=== PATIENT | female | born 1980 | race Caucasian/White ===

== ENCOUNTER 2018-10-27 20:10 | Emergency (ER) | payer MEDICARE, OTHER ==
--- NOTE | 2018-10-27 20:54 | ED Physician Documentation ---
PD HPI HEADACHE - Stated complaint Stated Complaint: SWIFT - Chief complaint Chief Complaint: Neuro - History obtained from History obtained from: Patient - History of Present Illness Timing - onset: How many days ago (7) Timing - onset during: Light activity Timing - duration: Days (7) Timing - details: Gradual onset (she has migraines and being treated with botox. had injections on , and noted increase in headache the next 1-2 days, and has persisted at higher level since.) Worst headache ever?: No: Worst headache ever? Location: Front, Left Quality: Throbbing, Aching Associated symptoms: Nausea. No: Fever, Vomiting, Eye pain Improved by: No: Rest, Meds Worsened by: Light Contributing factors: No: Recent illness, Trauma Similar symptoms before: Diagnosis (prior Dx IIH, but then shifted to more likely migraines with treatment focus that way now. Has had temporal artery biopsy which was negative. Dx also with SLE.) Recently seen: Clinic (Neurology in [place] with botox injections October 20.) Review of Systems Constitutional: denies: Fever, Chills, Myalgias Eyes: reports: Photophobia. denies: Loss of vision Nose: denies: Rhinorrhea / runny nose, Congestion Throat: denies: Sore throat Respiratory: denies: Cough GI: reports: Nausea. denies: Abdominal Pain, Vomiting, Diarrhea Neurologic: reports: Headache. 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 - Present Medications Home Medications: Ambulatory Orders Medication Instructions Recorded Confirmed dexAMETHasone [Decadron] 4 mg PO DAILY #7 tablet 10/27/18 - Allergies Allergies/Adverse Reactions: Allergies Allergy/AdvReac Type Severity Reaction Status Date / Time amitriptyline Allergy Hives Verified 10/27/18 20:33 cephalexin [From Keflex] Allergy Hives Verified 10/27/18 20:32 cyclobenzaprine Allergy Hives Verified 10/27/18 20:31 [From Flexeril] duloxetine [From Cymbalta] Allergy Hives Verified 10/27/18 20:33 enoxaparin [From Lovenox] Allergy Hives Verified 10/27/18 20:33 heparin Allergy Hives Verified 10/27/18 20:35 hydrocodone Allergy Itching Verified 10/27/18 20:31 methotrexate Allergy Anaphylaxis Verified 10/27/18 20:35 ondansetron [From Zofran] Allergy Hives Verified 10/27/18 20:33 Penicillins Allergy Rash Verified 10/27/18 20:31 prednisone Allergy Hives Verified 10/27/18 20:31 tizanidine [From Zanaflex] Allergy Hives Verified 10/27/18 20:31 trazodone Allergy Anxiety Verified 10/27/18 20:32 venlafaxine [From Effexor] Allergy Hives Verified 10/27/18 20:33 - Social History Does the pt smoke?: No Smoking Status: Never smoker Does the pt drink ETOH?: No Does the pt have substance abuse?: No - Immunizations Immunizations are current?: Yes - POLST Patient has POLST: No PD ED PE NORMAL - Vitals Vital signs reviewed: Yes - General General: Alert and oriented X 3, Well developed/nourished, Other (appears in pain and has light sensitive. ) - HEENT HEENT: PERRL, EOMI, Ears normal, Pharynx benign, Other (left gnosticist area focally tender at approx masseter muscle insertion site. 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, No motor deficit, No sensory deficit, Normal speech, Other Results - Vitals Vitals: Vital Signs - 24 hr 10/27/18 10/27/18 10/27/18 20:11 20:17 22:30 Temperature 36.4 C L 36.6 C Heart Rate 80 80 68 Respiratory 16 16 16 Rate Blood Pressure 118/76 118/76 111/80 O2 Saturation 100 100 97 10/28/18 00:01 Temperature 36.6 C Heart Rate 61 Respiratory 16 Rate Blood Pressure 118/82 H O2 Saturation 99 Oxygen O2 Source Room air - Labs Labs: Laboratory Tests 10/27/18 10/27/18 10/27/18 22:28 22:28 22:28 WBC 8.0 RBC 4.97 Hgb 14.7 Hct 42.9 MCV 86.3 MCH 29.6 MCHC 34.3 RDW 12.9 Plt Count 228 MPV 10.1 Neut # (Auto) 4.7 Lymph # (Auto) 2.8 [place] # (Auto) 0.4 Eos # (Auto) 0.1 Baso # (Auto) 0.1 Absolute Nucleated RBC 0.00 Nucleated RBC % 0.0 ESR 5 Sodium 139 Potassium 3.4 L Chloride 107 Carbon Dioxide 20 L Anion Gap 12.0 BUN 14 Creatinine 0.9 Estimated GFR (MDRD) 70 L Glucose 89 Calcium 9.0 Total Bilirubin 1.1 H AST 17 ALT 11 Alkaline Phosphatase 86 Total Protein 7.0 Albumin 4.2 Globulin 2.8 Albumin/Globulin Ratio 1.5 Lipase 38 PD MEDICAL DECISION MAKING - ED course Complexity details: considered differential (normal ventricle size, so really would not think IIH. She had improvement on headache but only to moderate number (4/10), but she is okay with that and declines further pain meds. ), d/w patient ED course: did local injection left gnosticist muscle area with Marcaine. Departure - Departure Disposition: 01 Home, Self Care Clinical Impression: Migraine Qualifiers: Migraine type: without aura Status migrainosus presence: with status migrainosus Intractability: intractable Qualified Code(s): G43.011 - Migraine without aura, intractable, with status migrainosus Headache Qualifiers: Headache type: unspecified Headache chronicity pattern: acute headache Intractability: intractable Qualified Code(s): R51 - Headache Condition: Stable Record reviewed to determine appropriate education?: Yes Instructions: ED Headache Migraine Follow-Up: NICOLE HASSAN DO [Primary Care Provider] - Prescriptions: dexAMETHasone [Decadron] 4 mg PO DAILY #7 tablet Comments: Continue usual medications. Stay well-hydrated. Add Decadron steroid daily for 3 to 5 days. Hopefully the headache will taper down and improve over the next day or 2. Follow-up with your primary care or neurologist if headache persists and return if worsening or other symptoms. Discharge Date/Time: 10/28/18 00:03
[2018-10-27] MEDS ORDERED: diphenhydrAMINE INJ 50 MG/ML VIAL IVP STA (21:14)
[2018-10-27] MEDS ORDERED: BUPIVACAINE 0.5%-EPI 1:200000 PF 10 ML VIAL SUBQ STA (21:14)
[2018-10-27] MEDS ORDERED: PROCHLORPERAZINE 10 MG/2 ML VIAL IVP STA ×2 (21:14→22:36)
[2018-10-27] MEDS ORDERED: KETOROLAC 30 MG/ML VIAL IVP STA (21:14)
[2018-10-27] MEDS ORDERED: SODIUM CHLORIDE 0.9% 500 ML IV ONE (21:16)
--- NOTE | 2018-10-27 21:43 | CT Report ---
Reason: left headache after botox injections Procedure Date: 10/27/2018 Accession Number: [id number] / [id number] Procedure: CT - HEAD WO CPT Code: FULL RESULT: EXAM: CT HEAD EXAM DATE: 10/27/2018 09:33 PM. CLINICAL HISTORY: Left headache after botox injections. COMPARISON: None. TECHNIQUE: Multiaxial CT images were obtained from the foramen magnum to the vertex. Reformats: Sagittal and coronal. IV contrast: None. In accordance with CT protocol optimization, one or more of the following dose reduction techniques were utilized for this exam: automated exposure control, adjustment of mA and/or KV based on patient size, or use of iterative reconstructive technique. FINDINGS: Parenchyma: No intraparenchymal hemorrhage. No evidence of mass, midline shift, or CT findings of infarction. Rose-white differentiation is distinct. Extraaxial Spaces: Normal for age. No subdural or epidural collections identified. Ventricles: Normal in size and position. Sinuses and Orbits: Imaged paranasal sinuses, orbits, and mastoids show no significant abnormality. Bones: No evidence of fracture or calvarial defect. Other: None. IMPRESSION: Normal head CT. RADIA
[2018-10-27 22:31] LABS: BASOPHILS # (AUTO) 0.1 10^3/uL (0.0-0.1); BASOPHILS % (AUTO) 0.6 %; EOSINOPHILS # (AUTO) 0.1 10^3/uL (0.0-0.7); EOSINOPHILS % (AUTO) 1.1 %; HGB - HEMOGLOBIN 14.7 g/dL (12.0-16.0); LYMPHOCYTES # (AUTO) 2.8 10^3/uL (1.5-3.5); LYMPHOCYTES % (AUTO) 34.6 %; MEAN CORPUSCULAR HEMOGLOBIN 29.6 pg (27.0-31.0); MEAN CORPUSCULAR HGB CONC 34.3 g/dL (32.0-36.0); MEAN CORPUSCULAR VOLUME 86.3 fL (81.0-99.0); MEAN PLATELET VOLUME 10.1 fL (7.9-10.8); MONOCYTES # (AUTO) 0.4 10^3/uL (0.0-1.0); NEUTROPHILS # (AUTO) 4.7 10^3/uL (1.5-6.6); NEUTROPHILS % (AUTO) 58.3 %; PLT - PLATELET COUNT 228 10^3/uL (130-450); RED BLOOD COUNT 4.97 10^6/uL (4.20-5.40); RED CELL DISTRIBUTION WIDTH 12.9 % (12.0-15.0)
[2018-10-27] MEDS ORDERED: DEXAMETHASONE 10 MG/ML VIAL IVP STA (22:35)
[2018-10-27] MEDS ORDERED: HYDROmorphone 2 MG/ML VIAL IVP STA (22:35)
[2018-10-27 22:45] LABS: ALBUMIN 4.2 g/dL (3.2-5.5); ALBUMIN/GLOBULIN RATIO 1.5 (1.0-2.2); BILIRUBIN,TOTAL 1.1 mg/dL (0.2-1.0); CREATININE 0.9 mg/dL (0.4-1.0)
[2018-10-28 00:03] VITALS: BP 118/82
== END 2018-10-28 00:03 | disposition home or self-care (01) ==
LOC: ED 20:10
DX: G43.011 Migraine without aura, intractable, with status migrainosus (principal); I10 Essential (primary) hypertension; M32.9 Systemic lupus erythematosus, unspecified
CPT/HCPCS: 36415; 70450; 80053; 83690; 85025; 85651; 96361; 96374; 96375; 99283; 99284; J1170; J1200

== ENCOUNTER 2018-10-30 18:12 | Emergency (ER) | payer MEDICARE, OTHER ==
[2018-10-30] MEDS ORDERED: LIDOCAINE 2% 10 ML MDV SUBQ STA (18:39)
[2018-10-30] MEDS ORDERED: diphenhydrAMINE INJ 50 MG/ML VIAL IVP STA (19:34)
[2018-10-30] MEDS ORDERED: PROCHLORPERAZINE 10 MG/2 ML VIAL IVP STA (19:34)
[2018-10-30] MEDS ORDERED: KETOROLAC 30 MG/ML VIAL IVP STA (19:34)
--- NOTE | 2018-10-30 19:43 | ED Physician Documentation ---
PD HPI HEADACHE - Stated complaint Stated Complaint: HEADACHE - Chief complaint Chief Complaint: Neuro - History obtained from History obtained from: Patient - History of Present Illness Timing - onset: Today Timing - onset during: Rest Timing - duration: Days (1) Timing - details: Abrupt onset Pain level max: 10 Pain level now: 10 Location: Front, Left Quality: Throbbing, Aching. No: Thunderclap, Stabbing, Tightness, Like head is exploding Associated symptoms: Nausea, Other (+photophobia). No: Fever, Stiff neck, Vomiting, Weakness, Numbness, Syncope, Seizure Improved by: Rest, Dark room Worsened by: Light, Noise Contributing factors: No: Anticoagulated, Possible carbon monoxide, Hypertension Similar symptoms before: Diagnosis (migraines) Recently seen: Emergency Dept (seen here a few days ago for same.) Review of Systems Ten Systems: 10 systems reviewed and negative Constitutional: denies: Fever Nose: denies: Rhinorrhea / runny nose, Congestion Throat: denies: Sore throat GI: denies: Nausea, Vomiting : denies: Now EGA Skin: denies: Rash Musculoskeletal: denies: Neck pain, Back pain PD PAST MEDICAL HISTORY - Past Medical History Cardiovascular: Hypertension Respiratory: Asthma Neuro: Migraines Endocrine/Autoimmune: Systemic lupus erythematosus Musculoskeletal: Rheumatoid arthritis - Past Surgical History Past Surgical History: Yes General: Cholecystectomy, Appendectomy 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 - Present Medications Home Medications: Ambulatory Orders Medication Instructions Recorded Confirmed dexAMETHasone [Decadron] 4 mg PO DAILY #7 tablet 10/27/18 Sumatriptan [Imitrex] 20 mg NS ONCE PRN #7 spray 10/30/18 - Allergies Allergies/Adverse Reactions: Allergies Allergy/AdvReac Type Severity Reaction Status Date / Time amitriptyline Allergy Hives Verified 10/30/18 18:19 cephalexin [From Keflex] Allergy Hives Verified 10/30/18 18:19 cyclobenzaprine Allergy Hives Verified 10/30/18 18:19 [From Flexeril] duloxetine [From Cymbalta] Allergy Hives Verified 10/30/18 18:19 enoxaparin [From Lovenox] Allergy Hives Verified 10/30/18 18:19 heparin Allergy Hives Verified 10/30/18 18:19 hydrocodone Allergy Itching Verified 10/30/18 18:19 methotrexate Allergy Anaphylaxis Verified 10/30/18 18:19 ondansetron [From Zofran] Allergy Hives Verified 10/30/18 18:19 Penicillins Allergy Rash Verified 10/30/18 18:19 prednisone Allergy Hives Verified 10/30/18 18:19 tizanidine [From Zanaflex] Allergy Hives Verified 10/30/18 18:19 trazodone Allergy Anxiety Verified 10/30/18 18:19 venlafaxine [From Effexor] Allergy Hives Verified 10/30/18 18:19 - Social History Does the pt smoke?: No Smoking Status: Never smoker Does the pt drink ETOH?: No Does the pt have substance abuse?: No - Immunizations Immunizations are current?: Yes - POLST Patient has POLST: No PD ED PE NORMAL - Vitals Vital signs reviewed: Yes - General General: Alert and oriented X 3, No acute distress, Well developed/nourished - HEENT HEENT: PERRL, Moist mucous membranes, Other (Lying in darkened room. 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 She was having pain near the mormon where there is a small raised red area. No abscess. Lidocaine was placed and this pain went away. She then complained of intracranial headache. Given Toradol, Compazine, Benadryl. Headache slightly improved. Tried Haldol and improved a little bit further. She was then given a dose of Fioricet. She states at this point she would just like to go home and go to sleep and see how she feels in the morning. No evidence of subarachnoid hemorrhage, tumor. Normal neurological exam. Patient counseled regarding signs and symptoms for which I believe and urgent re-evaluation would be necessary. Patient with good understanding of and agreement to plan and is comfortable going home at this time This document was made in part using voice recognition software. While efforts are made to proofread this document, sound alike and grammatical errors may occur. Departure - Departure Disposition: Home, Self Care Clinical Impression: Headache Qualifiers: Headache type: unspecified Headache chronicity pattern: acute headache Intractability: not intractable Qualified Code(s): R51 - Headache Condition: Good Instructions: ED Cephalgia Unspecified Follow-Up: NICOLE HASSAN DO [Primary Care Provider] - Within 3 Days Prescriptions: Sumatriptan [Imitrex] 20 mg NS ONCE PRN #7 spray PRN Reason: headache Comments: We will trial you on nasal Imitrex for home as well. Many patients have good success with this. Return if you worsen. Go home and rest tonight. Do not drive tonight.
[2018-10-30] MEDS ORDERED: HALOPERIDOL 5 MG/ML VIAL IVP STA (20:54)
[2018-10-30] MEDS ORDERED: BUTALB/ACETAM/CAFF 50/325/40MG TABLET PO STA (21:48)
[2018-10-30 22:07] VITALS: BP 110/67
== END 2018-10-30 23:10 | disposition home or self-care (01) ==
LOC: ED 18:12
DX: R51 Headache (principal); I10 Essential (primary) hypertension; M32.9 Systemic lupus erythematosus, unspecified
CPT/HCPCS: 96372; 96374; 96375; 99283; 99284; A9270; J1200

== ENCOUNTER 2018-11-05 15:24 | Outpatient (CLI) | payer MEDICARE, OTHER ==
[2018-11-05] MEDS ORDERED: GADOBUTROL 10 MMOL/10 ML VIAL ONE (15:39)
[2018-11-05] MEDS ORDERED: GADOBUTROL 10 MMOL/10 ML VIAL IVP ONE (17:07)
--- NOTE | 2018-11-06 15:11 | MRI Report ---
Reason: THORACIC AND LUMBAR RADICULAR PAIN Procedure Date: 11/05/2018 Accession Number: [id number] / [id number] Procedure: MRI - Thoracic Spine W/WO CPT Code: FULL RESULT: MRI THORACIC SPINE WITHOUT AND WITH CONTRAST INDICATION: 38-year-old female with mid and low back pain. History of multiple prior spine surgeries, the most recent in 2017. TECHNIQUE: 1. Sagittal STIR, T1 and T2. 2. Axial T1 and T2. 3. 8 mL IV Gadavist. T1 axial and fat-saturated T1 sagittal. COMPARISON: None. FINDINGS: Vertebral alignment is essentially normal. There is minimal anterior wedging of the T1 vertebral body with concavity of the inferior endplate, consistent with the sequela of an old, healed, inferior endplate compression fracture. There is minimal anterior wedging of the T2 vertebral body with mild concavity of the superior and inferior endplates of T2, consistent with old endplate compression fractures. In addition, there is minor anterior wedging of the T3 vertebral body with concavity of the superior endplate, consistent with the sequela of an old healed superior endplate compression fracture. The vertebral body heights are otherwise maintained. There is no evidence of a recent thoracic spine compression fracture. The thoracic disks appear relatively well-hydrated. No focal disk herniation is demonstrated. The spinal canal appears widely patent throughout. The spinal cord appears to have a normal contour, caliber and signal intensity throughout. There is degenerative facet arthrosis with associated minor bony hypertrophy in a few of the lower thoracic facet joints. No associated spinal canal or foraminal encroachment. A few intraosseous hemangiomata are demonstrated. The marrow signal intensity is otherwise unremarkable. Postcontrast sequences show no evidence of abnormal enhancement. In particular, there is no evidence of discitis, osteomyelitis or epidural abscess. Noted are small pleural effusions bilaterally. IMPRESSION: 1. There is minimal anterior wedging of the T1, T2 and T3 vertebral bodies, consistent with the sequela of old healed endplate compression fractures. 2. No evidence of a recent thoracic spine compression fracture. 3. Imaging of the thoracic spine is otherwise unremarkable. In particular, there is no evidence of disk herniation, spinal stenosis or neural impingement. 4. Incidentally noted are small bilateral pleural effusions. RADIA
--- NOTE | 2018-11-06 15:13 | MRI Report ---
Reason: SCREENING MAMMO Procedure Date: 11/05/2018 Accession Number: [id number] / [id number] Procedure: MRI - Lumbar Spine W/WO CPT Code: FULL RESULT: MRI LUMBAR SPINE WITHOUT AND WITH CONTRAST INDICATION: 38-year-old female with mid and low back pain. History of multiple prior spine surgeries. Please assess. TECHNIQUE: 1. Sagittal STIR, T1 and T2. 2. Axial T1 and T2. 3. 8 mL IV Gadavist. T1 axial and fat-saturated T1 sagittal. COMPARISON: None. FINDINGS: There are 5 [id number], lumbar-type vertebrae. Postsurgical changes are demonstrated in the lower lumbar spine. There is evidence of previous discectomy and interbody fusion surgery at L4-L5 and L5-S1. Interbody fusion devices are demonstrated positioned within the disk spaces at both levels. There is associated magnetic susceptibility artifact that limits assessment. There may be early bony bridging across the L4-L5 disk space laterally on the right and left (see image 11 of series 401 and image 4 of series 401). However, there is no definite bony bridging across the L5-S1 disk space. Also demonstrated are changes of previous left-sided hemilaminotomy at L4-L5 and L5-S1. In addition, there is evidence of previous instrumented posterolateral fusion from L4 to S1 with pedicle screws and interconnecting rods in place. There is magnetic susceptibly artifact associated with the posterior fusion hardware, however, this does not appear to be causing significant image degradation. There is evidence of a previous discectomy and interbody fusion surgery at L3-L4 with interbody fusion device demonstrated in place. There is concavity of the superior endplate of L3, most prominent paracentrally on the left where there is mild to moderate loss of height anteriorly and centrally. Focal areas of very low T1 and T2 signal are demonstrated within the L3 vertebral body, suggesting methylmethacrylate from a previous vertebroplasty or kyphoplasty. The vertebral body heights are otherwise preserved. The T12-L1, L1-L2 and L2-L3 disks appear well-hydrated and the disk space heights are maintained. Magnetic susceptibly artifact from fusion hardware limits evaluation of the marrow signal from L3 down. Grossly, no pathologic marrow signal is demonstrated. There are multiple intraosseous hemangiomata. The marrow signal in the L1 and L2 vertebrae and in the imaged lower thoracic/upper sacral spine otherwise appears normal. The conus terminates in an appropriate fashion at about the L1-L2 disk level. There is no abnormal thickening or lipomatous change of the filum. Axial images: T12-L1: No focal disk herniation. No spinal canal or foraminal stenosis. L1-L2: Tiny, shallow right paracentral protrusion with minimal mass effect on the thecal sac. No spinal stenosis. The neural foramina are widely patent. L2-L3: Minimal disk bulge. Small intraforaminal protrusions bilaterally. No spinal stenosis. Mild left and mild to moderate right foraminal stenoses. L3-L4: Minor circumferential disk bulge. Tiny right intraforaminal/extraforaminal protrusion. Larger broad-based left intraforaminal/extraforaminal protrusion or extrusion. No significant spinal stenosis. Mild right and mild to moderate left foraminal stenoses. L4-L5: No spinal stenosis. Mild foraminal stenoses. L5-S1: Small posterior protrusion with an associated osteophyte. No spinal stenosis. Small left intraforaminal protrusion with mild to moderate left foraminal stenosis. On the right, there appears to be fairly severe bony foraminal narrowing. Evaluation is limited due to artifact from pedicle screws. There could potentially be compromise of the exiting right L5 nerve root. There appears to be little if any perineural fat in the foramen. No significant-enhancing epidural granulation tissue is identified at L4-L5. At L5-S1, there does appear to be some enhancing granulation tissue in the spinal canal surrounding the dural sleeves for the traversing S1 nerve roots, more prominent on the right than the left. There is no associated distortion or retraction of either S1 dural sleeve. Assessment on postcontrast T1 fat-saturated sequences is very limited due to disturbance in local magnetic field caused by metal fusion hardware. This results in inhomogeneous fat saturation. Grossly, no abnormal intraspinal enhancement is demonstrated. Incidentally noted is a roughly 1 cm diameter cortical cyst arising from the lateral aspect of the midpole of the left kidney. There appears to be a small fluid-fluid level within the cyst. Small amounts of material of very low T2 signal layering posteriorly (see image 34 of series 301) suggesting probable minor hemorrhage within the cyst. IMPRESSION: 1. There is evidence of previous instrumented posterolateral fusion from L4 to S1. In addition, there is evidence of a previous discectomy and interbody fusion surgery at L4-L5 and L5-S1. There probably is at least partial bony bridging across the disk space at L4-L5. No definite bony bridging is seen at L5-S1 suggesting the possibility of nonunion, a potential cause for back pain. This could be further evaluated with CT. 2. Also demonstrated are changes of a previous discectomy and interbody fusion surgery at L3-L4 without obvious trabecular bone traversing the L3-L4 disk space, also suggesting the possibility of nonunion. 3. There is evidence of a previously treated superior endplate compression fracture at L3 on the left. There is no marrow edema within the L3 vertebral body to suggest this relates to a recent fracture. 4. Degenerative changes are seen involving lumbar disks, as documented above. No significant spinal stenosis is demonstrated. Evaluation is limited, due to artifact from metal fusion hardware. There is potentially significant foraminal narrowing on the right at L5-S1. There could be compromise of exiting right L5 nerve root. Recommend clinical correlation for right L5 radiculopathy. If desired, a lumbar spine CT could be performed to better assess the actual degree of bony foraminal narrowing on the right at L5-S1.
== END 2018-11-05 15:25 | disposition home or self-care (01) ==
LOC: DI 15:24
PROVIDERS: ATTEND Nurse Practitioner
DX: M54.14 Radiculopathy, thoracic region (principal); M51.16 Intervertebral disc disorders with radiculopathy, lumbar region; Z98.1 Arthrodesis status; J90 Pleural effusion, not elsewhere classified
CPT/HCPCS: 72157; 72158; A9585

== ENCOUNTER 2019-01-14 15:09 | Outpatient (CLI) | payer MEDICARE, OTHER ==
--- NOTE | 2019-01-15 12:16 | CT Report ---
Reason: LUMBAR RADICULOPATHY Procedure Date: 01/14/2019 Accession Number: [id number] / [id number] Procedure: CT - LUMBAR SPINE WO CPT Code: FULL RESULT: EXAM: CT LUMBAR SPINE WITHOUT CONTRAST EXAM DATE: 01/14/2019 03:23 PM. CLINICAL HISTORY: LUMBAR RADICULOPATHY. COMPARISONS: Lumbar spine MRI 11/05/2018.. TECHNIQUE: Thin-section axial images were acquired of the lumbar spine from T12 to S1 without contrast. Post-processing: Coronal and sagittal reformats. Other: None. In accordance with CT protocol optimization, one or more of the following dose reduction techniques were utilized for this exam: automated exposure control, adjustment of mA and/or KV based on patient size, or use of iterative reconstructive technique. FINDINGS: Postsurgical changes: Postsurgical changes of L4-S1 posterior segmental instrumented fusion; L3-L4, L4-L5, and L5-S1 interbody fusion with interbody spacers; and left L3-L4 lateral instrumented interbody fusion. No significant bridging ossification across the L3-L4 disk space. Additionally, the inferior fixation screw at the lateral interbody fusion traverses the superior endplate of L4, with the tip terminating within the disk space and appearing to have poor purchase throughout the course of the screw. There is solid osseous fusion across the L4-L5 disk space. Partial osseous bridging across the L5-S1 disk space posteriorly. Alignment: Lumbar levoscoliosis is incompletely evaluated but measures proximally 10 degrees with the apex L1-L2. No spondylolisthesis. Bones: Five [id number] lumbar vertebral bodies are present. Anterior wedging of the L3 vertebral body with prior vertebroplasty. No evidence of acute fracture. Disk Levels/Facets: T12-L1: Unremarkable. L1-L2: Unremarkable. L2-L3: Unremarkable. L3-L4: Prior interbody fusion. No central canal or foraminal stenosis. L4-L5: Prior interbody fusion and posterior instrumented fusion. The facets are fused. Heterotopic ossification extends across the inferior margin of the right neural foramen, causing moderate right bony foraminal stenosis but not appearing to displace the nerve root. Left neural foramen is patent. L5-S1: Prior interbody fusion and posterior segmental instrumented fusion. Similar to the L4-L5 level, there is heterotopic ossification bridging the inferior margin of the right L5-S1 neural foramen causes moderate right foraminal stenosis and may impinge upon the exiting right L5 nerve root. The left neural foramen is patent. Musculature: Normal. No fatty atrophy. Other: The visualized retroperitoneum is unremarkable. IMPRESSION: 1. Postsurgical changes of L3-S1 interbody fusion and L4-S1 posterior segmental instrumented fusion. The L4-L5 and L5-S1 disk spaces appear to be fused. At L3-L4, there is no visible bridging ossification, and the inferior screw at the lateral fixation hardware appears to have poor purchase, traversing the superior endplate and terminating within the disk space. 2. Heterotopic ossification bridges the inferior margins of the right L4-L5 and L5-S1 neural foramina, causing moderate foraminal stenosis with possible impingement upon the exiting right L4 and L5 nerve roots. 3. Chronic L3 wedge compression fracture with postsurgical changes of kyphoplasty. RADIA
== END 2019-01-14 15:10 | disposition home or self-care (01) ==
LOC: DI 15:09
PROVIDERS: ATTEND Nurse Practitioner
DX: M48.061 Spinal stenosis, lumbar region without neurogenic claudication (principal); Z98.1 Arthrodesis status; M48.56XS Collapsed vertebra, not elsewhere classified, lumbar region, sequela of fracture
CPT/HCPCS: 72131

== ENCOUNTER 2019-01-23 17:05 | Emergency (ER) | payer MEDICARE, OTHER ==
[2019-01-23 17:31] LABS: BILIRUBIN,URINE NEGATIVE (NEGATIVE); GLUCOSE, URINE (UA) NEGATIVE (NEGATIVE); KETONES,URINE (UA) NEGATIVE (NEGATIVE); LEUKOCYTE ESTERASE, URINE NEGATIVE (NEGATIVE); NITRITE,URINE NEGATIVE (NEGATIVE); OCCULT BLOOD,URINE NEGATIVE (NEGATIVE); PROTEIN,URINE NEGATIVE (NEGATIVE); UROBILINOGEN,URINE 0.2 (NORMAL) E.U./dL (NORMAL)
[2019-01-23 17:34] LABS: CLARITY,URINE CLEAR (CLEAR)
[2019-01-23 17:35] LABS: HCG UR QUAL NEGATIVE
--- NOTE | 2019-01-23 19:55 | ED Physician Documentation ---
History of Present Illness - Stated complaint Stated Complaint: LOWER BACK PAIN - Chief complaint Chief Complaint: Abd Pain - Additonal information Additional information: This is a 38 year old female with lupus, scleroderma, RA, chronic pain, renal cyst, who presents with bilateral flank pain worsening for the past day. Pt states she has had flank/lower back pain in November for which she received an MRI that reportedly showed a hemorrhagic kidney cyst. She also had a renal US done on but has not yet heard the results. Her pain abated for several weeks but recurred today. Her home Oxycontin and oxycodone are not improving her pain. No dysuria. 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 - Present Medications Home Medications: Ambulatory Orders Medication Instructions Recorded Confirmed Sumatriptan [Imitrex] 20 mg NS ONCE PRN #7 spray 10/30/18 Albuterol 01/23/19 Prochlorperazine Maleate 01/23/19 [Compazine] Promethazine [Phenergan] 01/23/19 diphenhydrAMINE [Benadryl] 01/23/19 oxyCODONE ER [OxyCONTIN] 15 mg PO BID 01/23/19 01/23/19 oxyCODONE [Roxicodone] 10 mg PO PRN PRN 01/23/19 01/23/19 - Allergies Allergies/Adverse Reactions: Allergies Allergy/AdvReac Type Severity Reaction Status Date / Time amitriptyline Allergy Hives Verified 10/30/18 18:19 cephalexin [From Keflex] Allergy Hives Verified 10/30/18 18:19 cyclobenzaprine Allergy Hives Verified 10/30/18 18:19 [From Flexeril] duloxetine [From Cymbalta] Allergy Hives Verified 10/30/18 18:19 enoxaparin [From Lovenox] Allergy Hives Verified 10/30/18 18:19 heparin Allergy Hives Verified 10/30/18 18:19 hydrocodone Allergy Itching Verified 10/30/18 18:19 methotrexate Allergy Anaphylaxis Verified 10/30/18 18:19 ondansetron [From Zofran] Allergy Hives Verified 10/30/18 18:19 Penicillins Allergy Rash Verified 10/30/18 18:19 prednisone Allergy Hives Verified 10/30/18 18:19 tizanidine [From Zanaflex] Allergy Hives Verified 10/30/18 18:19 trazodone Allergy Anxiety Verified 10/30/18 18:19 venlafaxine [From Effexor] Allergy Hives Verified 10/30/18 18:19 - Social History Does the pt smoke?: No Smoking Status: Never smoker Does the pt drink ETOH?: No Does the pt have substance abuse?: No - Immunizations Immunizations are current?: Yes - POLST Patient has POLST: No PD ED PE NORMAL - Vitals Vital signs reviewed: Yes - General General: Alert and oriented X 3, No acute distress - HEENT HEENT: PERRL - Neck Neck: Supple, no meningeal sign - Cardiac Cardiac: RRR - Respiratory Respiratory: No respiratory distress, Clear bilaterally - Abdomen Abdomen: Normal bowel sounds, Soft, Non tender, Non distended - Back Back: No CVA TTP, No spinal TTP - Derm Derm: Warm and dry - Extremities Extremities: No deformity - Neuro Neuro: Alert and oriented X 3 - Psych Psych: Normal mood, Normal affect Results - Vitals Vitals: Vital Signs - 24 hr 01/23/19 01/23/19 01/23/19 17:10 19:42 23:05 Temperature 37.1 C Heart Rate 73 56 L 50 L Respiratory 18 18 100 H Rate Blood Pressure 111/71 112/81 H 107/79 O2 Saturation 100 98 14 L 01/24/19 00:09 Temperature 37.1 C Heart Rate 54 L Respiratory 16 Rate Blood Pressure 113/83 H O2 Saturation 100 Oxygen O2 Source Room air - Labs Labs: Laboratory Tests 01/23/19 01/23/19 01/23/19 17:18 23:20 23:20 WBC 6.1 RBC 4.92 Hgb 13.8 Hct 42.1 MCV 85.6 MCH 28.0 MCHC 32.8 RDW 13.6 Plt Count 229 MPV 10.5 Neut # (Auto) 3.3 Lymph # (Auto) 2.3 Cobb # (Auto) 0.3 Eos # (Auto) 0.1 Baso # (Auto) 0.0 Absolute Nucleated RBC 0.00 Nucleated RBC % 0.0 Sodium 143 Potassium 3.9 Chloride 110 Carbon Dioxide 25 Anion Gap 8.0 BUN 15 Creatinine 0.8 Estimated GFR (MDRD) 80 L Glucose 98 Calcium 9.0 Total Bilirubin 1.5 H AST 18 ALT 13 Alkaline Phosphatase 82 Total Protein 6.9 Albumin 4.2 Globulin 2.7 Albumin/Globulin Ratio 1.6 Lipase 30 Urine Color YELLOW Urine Clarity CLEAR Urine pH 6.0 Ur Specific [place] >=1.030 H Urine Protein NEGATIVE Urine Glucose (UA) NEGATIVE Urine Ketones NEGATIVE Urine Occult Blood NEGATIVE Urine Nitrite NEGATIVE Urine Bilirubin NEGATIVE Urine Urobilinogen 0.2 (NORMAL) Ur Leukocyte Esterase NEGATIVE Ur Microscopic Review NOT INDICATED Urine Culture Comments NOT INDICATED Urine HCG, Qual NEGATIVE PD MEDICAL DECISION MAKING - ED course Complexity details: considered differential (Strain, UTI, pyelonephritis, nephrolithiasis, retroperitoneal mass) ED course: Pt is very well-appearing with normal vital signs on exam. Her exam is unremarkable and her abdomen is benign. CBC, CMP unremarkable. HCG negative. UA negative for infection or blood. The duration of her discomfort for several months with a recurrence and her benign exam and labs makes acute abdominal or retroperitoneal pathology highly unlikely. The bilateral nature of her discomfort makes nephrolithiasis unlikely. She has already had mulitple imaging studies done and I do not think further imaging today is indicated at this time. After toradol and oxycodone her pain did improve. I discussed close outpatient follow up and strict return precautions with the patient. She agreed and was discharged home. Departure - Departure Disposition: Home, Self Care Clinical Impression: Flank pain, acute Condition: Good Instructions: ED Flank Pain Uncertain Cause Follow-Up: NICOLE HASSAN DO [Primary Care Provider] - (Call Friday for follow up on ultrasound and pain) Comments: You were seen today for pain on both sides of your lower back. Your urine does not show signs of infection, your labs are reassuring. I am not sure what the cause of your pain is, it is important that you follow-up with your regular doctors on the results of the ultrasound that was done recently. If you have worsening pain, or other concerning symptoms such as fever, blood in your urine, persistent vomiting, please return to the emergency department. You may add Tylenol 650 mg every 6 hours to your pain control regimen. If this is ineffective in controlling your pain you may take one extra dose of your oxycodone per day for the next 1-2 days, but you should not take it more frequently than every 6 hours. Avoid any other sedating medications with the oxycodone. Discharge Date/Time: 01/24/19 00:16
[2019-01-23] MEDS ORDERED: KETOROLAC 30 MG/ML VIAL IM STA (20:44)
[2019-01-23] MEDS ORDERED: oxyCODONE 5 MG TABLET PO STA (20:44)
[2019-01-23 23:30] LABS: BASOPHILS % (AUTO) 0.7 %; EOSINOPHILS # (AUTO) 0.1 10^3/uL (0.0-0.7); HGB - HEMOGLOBIN 13.8 g/dL (12.0-16.0); LYMPHOCYTES # (AUTO) 2.3 10^3/uL (1.5-3.5); LYMPHOCYTES % (AUTO) 38.3 %; MEAN CORPUSCULAR HGB CONC 32.8 g/dL (32.0-36.0); MEAN CORPUSCULAR VOLUME 85.6 fL (81.0-99.0); MEAN PLATELET VOLUME 10.5 fL (7.9-10.8); MONOCYTES # (AUTO) 0.3 10^3/uL (0.0-1.0); NEUTROPHILS # (AUTO) 3.3 10^3/uL (1.5-6.6); NEUTROPHILS % (AUTO) 53.8 %; PLT - PLATELET COUNT 229 10^3/uL (130-450); RED BLOOD COUNT 4.92 10^6/uL (4.20-5.40); RED CELL DISTRIBUTION WIDTH 13.6 % (12.0-15.0); WHITE BLOOD COUNT 6.1 x10^3/uL (4.8-10.8)
[2019-01-23 23:41] LABS: ALBUMIN 4.2 g/dL (3.2-5.5); ALBUMIN/GLOBULIN RATIO 1.6 (1.0-2.2); BILIRUBIN,TOTAL 1.5 mg/dL (0.2-1.0); CREATININE 0.8 mg/dL (0.4-1.0); TOTAL PROTEIN 6.9 g/dL (6.7-8.2)
[2019-01-24 00:10] VITALS: BP 113/83
== END 2019-01-24 00:16 | disposition home or self-care (01) ==
LOC: ED 17:05
DX: M54.5 Low back pain (principal); R10.9 Unspecified abdominal pain; I10 Essential (primary) hypertension; M32.9 Systemic lupus erythematosus, unspecified; M34.9 Systemic sclerosis, unspecified; M06.9 Rheumatoid arthritis, unspecified; N28.1 Cyst of kidney, acquired
CPT/HCPCS: 36415; 80053; 81003; 81025; 83690; 85025; 96372; 99283; 99284; A9270; 81001; 87086

== ENCOUNTER 2019-01-30 10:15 | Emergency (ER) | payer MEDICARE, OTHER ==
[2019-01-30 10:59] LABS: BILIRUBIN,URINE NEGATIVE (NEGATIVE); GLUCOSE, URINE (UA) NEGATIVE (NEGATIVE); KETONES,URINE (UA) NEGATIVE (NEGATIVE); LEUKOCYTE ESTERASE, URINE TRACE (NEGATIVE); NITRITE,URINE NEGATIVE (NEGATIVE); OCCULT BLOOD,URINE NEGATIVE (NEGATIVE); PH,URINE 6.5 PH (5.0-7.5); PROTEIN,URINE NEGATIVE (NEGATIVE); UROBILINOGEN,URINE 0.2 (NORMAL) E.U./dL (NORMAL)
[2019-01-30 11:10] LABS: CLARITY,URINE CLEAR (CLEAR)
[2019-01-30 11:34] LABS: BACTERIA,URINE Rare /HPF (None Seen); RBC,URINE 0-5 /HPF (0-5); SQUAMOUS EPITHELIAL CELL,UR RARE Squamous (<= Few)
[2019-01-30] MEDS ORDERED: KETOROLAC 60 MG/2 ML VIAL IM STA (11:54)
--- NOTE | 2019-01-30 11:57 | ED Physician Documentation ---
PD HPI BACK PAIN - Stated complaint Stated Complaint: LT SIDED PX - Chief complaint Chief Complaint: Abd Pain - History obtained from History obtained from: Patient Review of Systems Ten Systems: 10 systems reviewed and negative Constitutional: denies: Fever Cardiac: reports: Reviewed and negative Respiratory: reports: Reviewed and negative GI: reports: Reviewed and negative : reports: Reviewed and negative. denies: Dysuria, Frequency, Hesitancy, Hematuria, Discharge, Vaginal bleeding Skin: reports: Reviewed and negative Musculoskeletal: reports: Back pain. 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 - Present Medications Home Medications: Ambulatory Orders Medication Instructions Recorded Confirmed Sumatriptan [Imitrex] 20 mg NS ONCE PRN #7 spray 10/30/18 Albuterol 01/23/19 Prochlorperazine Maleate 01/23/19 [Compazine] Promethazine [Phenergan] 01/23/19 diphenhydrAMINE [Benadryl] 01/23/19 oxyCODONE ER [OxyCONTIN] 15 mg PO BID 01/23/19 01/23/19 oxyCODONE [Roxicodone] 10 mg PO PRN PRN 01/23/19 01/23/19 Ketorolac [Toradol] 10 mg PO Q8HR PRN #30 tablet 01/30/19 - Allergies Allergies/Adverse Reactions: Allergies Allergy/AdvReac Type Severity Reaction Status Date / Time amitriptyline Allergy Hives Verified 01/30/19 10:23 cephalexin [From Keflex] Allergy Hives Verified 01/30/19 10:23 cyclobenzaprine Allergy Hives Verified 01/30/19 10:23 [From Flexeril] duloxetine [From Cymbalta] Allergy Hives Verified 01/30/19 10:23 enoxaparin [From Lovenox] Allergy Hives Verified 01/30/19 10:23 heparin Allergy Hives Verified 01/30/19 10:23 hydrocodone Allergy Itching Verified 01/30/19 10:23 methotrexate Allergy Anaphylaxis Verified 01/30/19 10:23 ondansetron [From Zofran] Allergy Hives Verified 01/30/19 10:23 Penicillins Allergy Rash Verified 01/30/19 10:23 prednisone Allergy Hives Verified 01/30/19 10:23 tizanidine [From Zanaflex] Allergy Hives Verified 01/30/19 10:23 trazodone Allergy Anxiety Verified 01/30/19 10:23 venlafaxine [From Effexor] Allergy Hives Verified 01/30/19 10:23 - Social History Does the pt smoke?: No Smoking Status: Never smoker Does the pt drink ETOH?: No Does the pt have substance abuse?: No - Immunizations Immunizations are current?: Yes - POLST Patient has POLST: No PD ED PE NORMAL - Vitals Vital signs reviewed: Yes - General General: Alert and oriented X 3, No acute distress, Well developed/nourished - HEENT HEENT: Atraumatic - Neck Neck: No JVD - Cardiac Cardiac: RRR - Respiratory Respiratory: No respiratory distress - Abdomen Abdomen: Soft, Non tender, Non distended - Female Female : Deferred - Rectal Rectal: Deferred - Back Back: No CVA TTP, No spinal TTP, Other (Left lateral SI joint tenderness that is moderate, full ROM) - Derm Derm: Normal color, Warm and dry, No rash - Extremities Extremities: No deformity, No tenderness to palpate, Normal ROM s pain, No edema, No calf tenderness / cord - Neuro Neuro: Alert and oriented X 3, No motor deficit, No sensory deficit Eye Opening: Spontaneous Motor: Obeys Commands Verbal: Oriented GCS Score: 15 - Psych Psych: Normal affect Results - Vitals Vitals: Vital Signs - 24 hr 01/30/19 01/30/19 01/30/19 10:23 11:49 12:03 Temperature 36.7 C 37.1 C Heart Rate 77 56 L 64 Respiratory 15 16 16 Rate Blood Pressure 121/75 116/76 125/83 H O2 Saturation 100 100 100 Oxygen O2 Source Room air - Labs Labs: Laboratory Tests 01/30/19 10:53 Urine Color YELLOW Urine Clarity CLEAR Urine pH 6.5 Ur Specific [place] 1.020 Urine Protein NEGATIVE Urine Glucose (UA) NEGATIVE Urine Ketones NEGATIVE Urine Occult Blood NEGATIVE Urine Nitrite NEGATIVE Urine Bilirubin NEGATIVE Urine Urobilinogen 0.2 (NORMAL) Ur Leukocyte Esterase TRACE H Urine RBC 0-5 Urine WBC 4-5 Ur Squamous Epith Cells RARE Squamous Urine Bacteria Rare Ur Microscopic Review INDICATED Urine Culture Comments INDICATED Procedures - Bedside sono Bedside sono by EMP: Performed bedside US of bilateral kidneys show no evidence of hydronephrosis PD MEDICAL DECISION MAKING - ED course Complexity details: reviewed old records, reviewed results, re-evaluated patient, considered differential, d/w patient ED course: ddx- uti, kidney stone, low back strain, sciatica, radiuclopathy, SI joint strain 38 y/o F with hx and exam as documented, has chronic pain and sees pain management, has been to the ED for multiple visits for low back pain. Today has low back pain, points to her L SI joint where she is maximally tender. She has no CVA tenderness, her UA is not suggestive of a kidney stone or UTI and her bedside US of her kidneys is unremarkable. I reviewed her records and noted that she does have a hx of a L kidney cyst that is being appropriately monitored but highly doubt that her symptoms today which are reproducible with palpation of her SI joint are due to this cyst. I discussed her results and my exam findings with the patient she insisted that this is due to her cyst. Again this is not consistent with her exam and I advised her to follow up with her PCP for a recheck and to reassess her symptoms. She is on multiple chronic analgesics including oxycontin. She would like to try toradol I advised her to stop meloxicam and try a short course of toradol for her symptoms and to f/u for outpt PT referral if symptoms persist. Departure - Departure Disposition: 01 Home, Self Care Clinical Impression: SI (sacroiliac) joint inflammation Condition: Stable Record reviewed to determine appropriate education?: Yes Instructions: Sacroiliac Strain Follow-Up: ANTONIETTA SHIRLEY ARNP [Primary Care Provider] - Within 1 week (to recheck your symptoms) Prescriptions: Ketorolac [Toradol] 10 mg PO Q8HR PRN #30 tablet PRN Reason: Pain Comments: You were evaluated in the ED for L low back pain and have an examination consistent with a SI joint strain. You have a urine test that shows no signs of infection or kidney stone and your ultrasound of your abdomen is not suggestive of a kidney stone or acute renal abnormality. Discontinue your meloxicam and try the toradol (ketorolac) every 8 hours as needed for pain. Discharge Date/Time: 01/30/19 12:14
[2019-01-30 12:04] VITALS: BP 125/83
== END 2019-01-30 12:14 | disposition home or self-care (01) ==
LOC: ED 10:15
DX: M46.98 Unspecified inflammatory spondylopathy, sacral and sacrococcygeal region (principal); N28.1 Cyst of kidney, acquired; I10 Essential (primary) hypertension; M32.9 Systemic lupus erythematosus, unspecified
CPT/HCPCS: 81001; 81003; 87086; 87181; 96372; 99283; 99284

== ENCOUNTER 2019-02-10 18:25 | Emergency (ER) | payer MEDICARE, OTHER ==
[2019-02-10] MEDS ORDERED: DEXAMETHASONE 10 MG/ML VIAL PO STA (19:26)
[2019-02-10] MEDS ORDERED: CHERRY SYRUP 10 ML UDC PO ONE (19:26)
[2019-02-10 19:27] VITALS: BP 114/69
--- NOTE | 2019-02-10 19:29 | ED Physician Documentation ---
PD HPI SKIN - Stated complaint Stated Complaint: RASH/SWELLING - Chief complaint Chief Complaint: Allergic Rx - History obtained from History obtained from: Patient - History of Present Illness Timing - onset: Yesterday (She has a coconut Oil allergy ate fast food yesterday about 3 PM and immediately developed diffuse redness and itching and swelling without shortness of breath or sensation of throat swelling. She tried Benadryl without relief. 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 - Present Medications Home Medications: Ambulatory Orders Medication Instructions Recorded Confirmed Sumatriptan [Imitrex] 20 mg NS ONCE PRN #7 spray 10/30/18 Albuterol 01/23/19 Prochlorperazine Maleate 01/23/19 [Compazine] Promethazine [Phenergan] 01/23/19 diphenhydrAMINE [Benadryl] 01/23/19 oxyCODONE ER [OxyCONTIN] 15 mg PO BID 01/23/19 01/23/19 oxyCODONE [Roxicodone] 10 mg PO PRN PRN 01/23/19 01/23/19 Ketorolac [Toradol] 10 mg PO Q8HR PRN #30 tablet 01/30/19 Doxepin [SINEquan] 10 mg PO TID PRN #20 capsule 02/10/19 dexAMETHasone [Decadron] 4 mg PO BIDWM #10 tablet 02/10/19 - Allergies Allergies/Adverse Reactions: Allergies Allergy/AdvReac Type Severity Reaction Status Date / Time amitriptyline Allergy Hives Verified 02/10/19 18:29 cephalexin [From Keflex] Allergy Hives Verified 02/10/19 18:29 cyclobenzaprine Allergy Hives Verified 02/10/19 18:29 [From Flexeril] duloxetine [From Cymbalta] Allergy Hives Verified 02/10/19 18:29 enoxaparin [From Lovenox] Allergy Hives Verified 02/10/19 18:29 heparin Allergy Hives Verified 02/10/19 18:29 hydrocodone Allergy Itching Verified 02/10/19 18:29 methotrexate Allergy Anaphylaxis Verified 02/10/19 18:29 ondansetron [From Zofran] Allergy Hives Verified 02/10/19 18:29 Penicillins Allergy Rash Verified 02/10/19 18:29 prednisone Allergy Hives Verified 02/10/19 18:29 tizanidine [From Zanaflex] Allergy Hives Verified 02/10/19 18:29 trazodone Allergy Anxiety Verified 02/10/19 18:29 venlafaxine [From Effexor] Allergy Hives Verified 02/10/19 18:29 - Social History Does the pt smoke?: No Smoking Status: Never smoker Does the pt drink ETOH?: No Does the pt have substance abuse?: No - Immunizations Immunizations are current?: Yes - POLST Patient has POLST: No PD ED PE NORMAL - Vitals Vital signs reviewed: Yes - General General: Alert and oriented X 3, No acute distress - HEENT HEENT: PERRL, EOMI, Pharynx benign - Neck Neck: Supple, no meningeal sign, No bony TTP - Cardiac Cardiac: RRR, No murmur - Respiratory Respiratory: No respiratory distress, Clear bilaterally - Abdomen Abdomen: Non tender - Derm Derm: Other (erythroderma) - Neuro Neuro: Alert and oriented X 3, Normal speech Results - Vitals Vitals: Vital Signs - 24 hr 02/10/19 18:29 Temperature 37.1 C Heart Rate 81 Respiratory 16 Rate Blood Pressure 131/87 H O2 Saturation 100 Oxygen O2 Source Room air Departure - Departure Disposition: 01 Home, Self Care Clinical Impression: Allergic reaction to food Qualifiers: Encounter type: initial encounter Qualified Code(s): T78.1XXA - Other adverse food reactions, not elsewhere classified, initial encounter Condition: Good Record reviewed to determine appropriate education?: Yes Instructions: ED Allergic Reaction General Other Prescriptions: dexAMETHasone [Decadron] 4 mg PO BIDWM #10 tablet Doxepin [SINEquan] 10 mg PO TID PRN #20 capsule PRN Reason: Itching Comments: Call your doctor to arrange a follow-up appointment, make the next available appointment. In the interim, return anytime if worse or if new symptoms develop. Your blood pressure was elevated today on check into the emergency department. This does not mean that you have hypertension, it is a common phenomenon to come to the emergency department and have elevated blood pressure. I recommend that you see your primary care physician within the week to have it rechecked when you are feeling better.
== END 2019-02-10 19:36 | disposition home or self-care (01) ==
LOC: ED 18:25
DX: T78.1XXA Other adverse food reactions, not elsewhere classified, initial encounter (principal); L53.9 Erythematous condition, unspecified; X58.XXXA Exposure to other specified factors, initial encounter; I10 Essential (primary) hypertension; M32.9 Systemic lupus erythematosus, unspecified
CPT/HCPCS: 99282; 99284; A9270

== ENCOUNTER 2019-04-11 10:28 | Emergency (ER) | payer MEDICARE, OTHER ==
[2019-04-11] MEDS ORDERED: CHERRY SYRUP 10 ML UDC PO ONE (12:05)
[2019-04-11] MEDS ORDERED: DEXAMETHASONE 10 MG/ML VIAL PO STA (12:05)
[2019-04-11] MEDS ORDERED: IPRATROPIUM/ALBUTEROL 3 ML NEB INH STA (12:05)
--- NOTE | 2019-04-11 12:08 | ED Physician Documentation ---
PD HPI URI - Stated complaint Stated Complaint: FLU TYPE SX - Chief complaint Chief Complaint: General - History obtained from History obtained from: Patient - History of Present Illness Timing - onset: Yesterday Timing duration: Days (1) Timing details: Gradual onset, Still present Associated symptoms: Fever, Ear pain, Nasal congestion, Rhinorrhea, Sore throat, Productive cough, Dyspnea Contributing factors: Sick contact Improves by: Rest, Medication Worsened by: Activity Similar symptoms before: Diagnosis (pneumonia and asthma, flu) Recently seen: Not recently seen - Additional information Additional information: 38-year-old female has become acutely ill beginning yesterday afternoon with cough and congestion she is coughing up yellow-green phlegm she has a sore throat especially on the right side and she has wheezing. She has asthma on a regular basis she is using her inhaler. She feels quite poorly she has muscle aches and pains as well she feels like she might have the flu. Review of Systems Constitutional: reports: Fever, Chills, Myalgias, Fatigue Eyes: denies: Decreased vision Ears: reports: Ear pain Nose: reports: Rhinorrhea / runny nose, Congestion Throat: reports: Sore throat Cardiac: denies: Chest pain / pressure, Palpitations Respiratory: reports: Dyspnea, Cough, Wheezing GI: denies: Nausea, Vomiting : denies: Dysuria PD PAST MEDICAL HISTORY - Past Medical History Past Medical History: Yes Cardiovascular: Hypertension Respiratory: Asthma Neuro: Migraines Endocrine/Autoimmune: Systemic lupus erythematosus Musculoskeletal: Rheumatoid arthritis - Past Surgical History Past Surgical History: Yes General: Cholecystectomy, Appendectomy 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 - Present Medications Home Medications: Ambulatory Orders Medication Instructions Recorded Confirmed Sumatriptan [Imitrex] 20 mg NS ONCE PRN #7 spray 10/30/18 Albuterol 01/23/19 Prochlorperazine Maleate 01/23/19 [Compazine] Promethazine [Phenergan] 01/23/19 diphenhydrAMINE [Benadryl] 01/23/19 oxyCODONE ER [OxyCONTIN] 15 mg PO BID 01/23/19 01/23/19 oxyCODONE [Roxicodone] 10 mg PO PRN PRN 01/23/19 01/23/19 Ketorolac [Toradol] 10 mg PO Q8HR PRN #30 tablet 01/30/19 Doxepin [SINEquan] 10 mg PO TID PRN #20 capsule 02/10/19 dexAMETHasone [Decadron] 4 mg PO BIDWM #10 tablet 02/10/19 Cefdinir 300 mg PO BID #20 capsule 04/11/19 dexAMETHasone [Decadron] 4 mg PO DAILY #5 tablet 04/11/19 - Allergies Allergies/Adverse Reactions: Allergies Allergy/AdvReac Type Severity Reaction Status Date / Time amitriptyline Allergy Hives Verified 04/11/19 10:32 cephalexin [From Keflex] Allergy Hives Verified 04/11/19 10:32 cyclobenzaprine Allergy Hives Verified 04/11/19 10:32 [From Flexeril] duloxetine [From Cymbalta] Allergy Hives Verified 04/11/19 10:32 enoxaparin [From Lovenox] Allergy Hives Verified 04/11/19 10:32 heparin Allergy Hives Verified 04/11/19 10:32 hydrocodone Allergy Itching Verified 04/11/19 10:32 methotrexate Allergy Anaphylaxis Verified 04/11/19 10:32 ondansetron [From Zofran] Allergy Hives Verified 04/11/19 10:32 Penicillins Allergy Rash Verified 04/11/19 10:32 prednisone Allergy Hives Verified 04/11/19 10:32 tizanidine [From Zanaflex] Allergy Hives Verified 04/11/19 10:32 trazodone Allergy Anxiety Verified 04/11/19 10:32 venlafaxine [From Effexor] Allergy Hives Verified 04/11/19 10:32 - Social History Does the pt smoke?: No Smoking Status: Never smoker Does the pt drink ETOH?: No Does the pt have substance abuse?: No - Immunizations Immunizations are current?: Yes - POLST Patient has POLST: No PD ED PE NORMAL - Vitals Vital signs reviewed: Yes (febrile and tachy) - General General: No acute distress, Well developed/nourished - HEENT HEENT: Atraumatic, PERRL, EOMI, Ears normal, Other (The pharynx is with 2+ swelling of the tonsils and worse on the right. ) - Neck Neck: Supple, no meningeal sign, No bony TTP - Cardiac Cardiac: RRR, No murmur - Respiratory Respiratory: No respiratory distress, Other (wheezes and rhonchi scattered ) - Abdomen Abdomen: Soft, Non tender - Back Back: No CVA TTP, No spinal TTP - Derm Derm: Normal color, Warm and dry, No rash - Extremities Extremities: No deformity, No edema - Neuro Neuro: Alert and oriented X 3, terrapin fisher 2-12 intact, No motor deficit, No sensory deficit, Normal speech Eye Opening: Spontaneous Motor: Obeys Commands Verbal: Oriented GCS Score: 15 - Psych Psych: Normal mood, Normal affect Results - Vitals Vitals: Vital Signs - 24 hr 04/11/19 04/11/19 04/11/19 10:32 12:30 13:35 Temperature 37.9 C H Heart Rate 110 H 99 90 Respiratory 14 20 16 Rate Blood Pressure 117/75 118/76 O2 Saturation 99 100 Oxygen O2 Source Room air - Labs Labs: Laboratory Tests 04/11/19 10:36 Influenza A (Rapid) Negative Influenza B (Rapid) Negative - Rads (name of study) chest 2 view Radiology: Prelim report reviewed (Impression: Normal two-view chest radiography.), EMP read indepedently, See rad report PD MEDICAL DECISION MAKING - ED course Complexity details: reviewed old records, reviewed results, re-evaluated patient, considered differential, d/w patient ED course: 38-year-old asthmatic female has developed a cough and congestion and has tonsillitis on examination she is administered dexamethasone 10 mg orally and a albuterol treatment with marked improvement in her breathing. Chest x-ray is without evidence of pneumonia. The influenza screen is negative. Departure - Departure Disposition: 01 Home, Self Care Clinical Impression: Tonsillitis Asthmatic bronchitis with acute exacerbation Qualifiers: Asthma severity: mild Asthma persistence: intermittent Qualified Code(s): J45.21 - Mild intermittent asthma with (acute) exacerbation Condition: Stable Instructions: ED Bronchitis Asthmatic, ED Tonsillitis Follow-Up: LEYDI Padron [Provider Group] Prescriptions: Cefdinir 300 mg PO BID #20 capsule dexAMETHasone [Decadron] 4 mg PO DAILY #5 tablet Discharge Date/Time: 04/11/19 13:35
[2019-04-11] MEDS ORDERED: ALBUTEROL NEB 2.5 MG/3 ML INH STA ×2 (12:28→12:33)
[2019-04-11] MEDS ORDERED: ALBUTEROL NEB 2.5 MG/3 ML INH ONE (12:29)
--- NOTE | 2019-04-11 12:52 | XRAY Report ---
Reason: couogh and wheezing Procedure Date: 04/11/2019 Accession Number: [id number] / [id number] Procedure: XR - Chest 2 View X-Ray CPT Code: 63011 Final Report FULL RESULT: EXAM: CHEST RADIOGRAPHY EXAM DATE: 04/11/2019 12:18 PM. CLINICAL HISTORY: Cough and wheezing. COMPARISON: None. TECHNIQUE: 2 views. FINDINGS: Lungs/Pleura: No focal opacities evident. No pleural effusion. No pneumothorax. Normal volumes. Mediastinum: Heart and mediastinal contours are unremarkable. Other: None. IMPRESSION: Normal 2-view chest radiography. RAD[facility]
[2019-04-11 13:36] VITALS: BP 118/76
== END 2019-04-11 13:35 | disposition home or self-care (01) ==
LOC: ED 10:28
DX: J03.90 Acute tonsillitis, unspecified (principal); J45.21 Mild intermittent asthma with (acute) exacerbation; M32.9 Systemic lupus erythematosus, unspecified; I10 Essential (primary) hypertension
CPT/HCPCS: 71046; 87275; 87276; 94640; 99284; A9270

== ENCOUNTER 2019-04-12 11:25 | Emergency (ER) | payer MEDICARE, OTHER ==
[2019-04-12 11:36] VITALS: BP 122/80
--- NOTE | 2019-04-12 12:41 | ED Physician Documentation ---
History of Present Illness - Stated complaint Stated Complaint: SOA - Chief complaint Chief Complaint: Resp - History obtained from History obtained from: Patient - History of Present Illness Pain level max: 0 Pain level now: 0 - Additonal information Additional information: Patient was seen yesterday. She thought she had an inhaler at home, but cannot find it. Here requesting a prescription for an inhaler. No new symptoms. 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 - Present Medications Home Medications: Ambulatory Orders Medication Instructions Recorded Confirmed Sumatriptan [Imitrex] 20 mg NS ONCE PRN #7 spray 10/30/18 Albuterol 01/23/19 Prochlorperazine Maleate 01/23/19 [Compazine] Promethazine [Phenergan] 01/23/19 diphenhydrAMINE [Benadryl] 01/23/19 oxyCODONE ER [OxyCONTIN] 15 mg PO BID 01/23/19 01/23/19 oxyCODONE [Roxicodone] 10 mg PO PRN PRN 01/23/19 01/23/19 Ketorolac [Toradol] 10 mg PO Q8HR PRN #30 tablet 01/30/19 Doxepin [SINEquan] 10 mg PO TID PRN #20 capsule 02/10/19 dexAMETHasone [Decadron] 4 mg PO BIDWM #10 tablet 02/10/19 Cefdinir 300 mg PO BID #20 capsule 04/11/19 dexAMETHasone [Decadron] 4 mg PO DAILY #5 tablet 04/11/19 Albuterol Sulf [Ventolin Hfa 1 - 2 puffs INH Q4HR PRN #1 inhaler 04/12/19 Inhaler] - Allergies Allergies/Adverse Reactions: Allergies Allergy/AdvReac Type Severity Reaction Status Date / Time amitriptyline Allergy Hives Verified 04/11/19 10:32 cephalexin [From Keflex] Allergy Hives Verified 04/11/19 10:32 cyclobenzaprine Allergy Hives Verified 04/11/19 10:32 [From Flexeril] duloxetine [From Cymbalta] Allergy Hives Verified 04/11/19 10:32 enoxaparin [From Lovenox] Allergy Hives Verified 04/11/19 10:32 heparin Allergy Hives Verified 04/11/19 10:32 hydrocodone Allergy Itching Verified 04/11/19 10:32 ipratropium [From DuoNeb] Allergy Unknown Verified 04/12/19 11:33 methotrexate Allergy Anaphylaxis Verified 04/11/19 10:32 ondansetron [From Zofran] Allergy Hives Verified 04/11/19 10:32 Penicillins Allergy Rash Verified 04/11/19 10:32 prednisone Allergy Hives Verified 04/11/19 10:32 tizanidine [From Zanaflex] Allergy Hives Verified 04/11/19 10:32 trazodone Allergy Anxiety Verified 04/11/19 10:32 venlafaxine [From Effexor] Allergy Hives Verified 04/11/19 10:32 - Social History Does the pt smoke?: No Smoking Status: Never smoker Does the pt drink ETOH?: No Does the pt have substance abuse?: No - Immunizations Immunizations are current?: Yes - POLST Patient has POLST: No PD ED PE NORMAL - Vitals Vital signs reviewed: Yes - General General: Alert and oriented X 3, No acute distress - HEENT HEENT: Moist mucous membranes - Neck Neck: Supple, no meningeal sign - Cardiac Cardiac: RRR - Respiratory Respiratory: No respiratory distress, Other (Minimal wheeze bilaterally) - Derm Derm: Warm and dry - Neuro Neuro: Alert and oriented X 3 Results - Vitals Vitals: Vital Signs - 24 hr 04/12/19 11:33 Temperature 37.1 C Heart Rate 71 Respiratory 15 Rate Blood Pressure 122/80 O2 Saturation 99 Oxygen O2 Source Room air PD MEDICAL DECISION MAKING - ED course Complexity details: considered differential, d/w patient ED course: Albuterol prescription provided. This document was made in part using voice recognition software. While efforts are made to proofread this document, sound alike and grammatical errors may occur. Departure - Departure Disposition: 01 Home, Self Care Clinical Impression: Asthmatic bronchitis with acute exacerbation Qualifiers: Asthma severity: unspecified severity Asthma persistence: unspecified Qualified Code(s): J45.901 - Unspecified asthma with (acute) exacerbation Condition: Good Instructions: ED Bronchitis Asthmatic Follow-Up: ANTONIETTA SHIRLEY ARNP [Primary Care Provider] - Within 1 week Prescriptions: Albuterol Sulf [Ventolin Hfa Inhaler] 1 - 2 puffs INH Q4HR PRN #1 inhaler PRN Reason: Shortness Of Air/Wheezing Comments: Return if you worsen. Follow-up with your doctor for further care.
== END 2019-04-12 12:51 | disposition home or self-care (01) ==
LOC: ED 11:25
DX: J45.901 Unspecified asthma with (acute) exacerbation (principal); I10 Essential (primary) hypertension; M32.9 Systemic lupus erythematosus, unspecified
CPT/HCPCS: 99282; 99283

== ENCOUNTER 2019-05-06 17:49 | Emergency (ER) | payer MEDICARE, OTHER ==
[2019-05-06 18:00] VITALS: BP 121/80
[2019-05-06 18:14] LABS: BILIRUBIN,URINE NEGATIVE (NEGATIVE); GLUCOSE, URINE (UA) NEGATIVE (NEGATIVE); KETONES,URINE (UA) NEGATIVE (NEGATIVE); LEUKOCYTE ESTERASE, URINE MODERATE (NEGATIVE); NITRITE,URINE NEGATIVE (NEGATIVE); OCCULT BLOOD,URINE LARGE (NEGATIVE); PH,URINE 5.5 PH (5.0-7.5); PROTEIN,URINE NEGATIVE (NEGATIVE); UROBILINOGEN,URINE 0.2 (NORMAL) E.U./dL (NORMAL)
[2019-05-06 18:16] LABS: CLARITY,URINE HAZY (CLEAR); HCG UR QUAL NEGATIVE
[2019-05-06 18:24] LABS: BACTERIA,URINE None Seen /HPF (None Seen); SQUAMOUS EPITHELIAL CELL,UR RARE Squamous (<= Few)
[2019-05-06] MEDS ORDERED: SULFAMETH/TRIMETH DS 800/160 MG TABLET PO STA (19:01)
[2019-05-06] MEDS ORDERED: PHENAZOPYRIDINE 100 MG TABLET PO STA (19:01)
[2019-05-06] MEDS ORDERED: DEXAMETHASONE 10 MG/ML VIAL PO STA (19:02)
[2019-05-06] MEDS ORDERED: CHERRY SYRUP 10 ML UDC PO ONE (19:02)
--- NOTE | 2019-05-06 19:04 | ED Physician Documentation ---
History of Present Illness - Stated complaint Stated Complaint: FEMALE - Chief complaint Chief Complaint: UTI - History obtained from History obtained from: Patient (Today she has had urinary frequency and burning dysuria, no vaginal bleeding or discharge. Mild right flank pain.) Review of Systems Constitutional: denies: Fever, Chills GI: reports: Nausea (Chronic, no worse than normal). 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 - Present Medications Home Medications: Ambulatory Orders Medication Instructions Recorded Confirmed Sumatriptan [Imitrex] 20 mg NS ONCE PRN #7 spray 10/30/18 Albuterol 01/23/19 Prochlorperazine Maleate 01/23/19 [Compazine] Promethazine [Phenergan] 01/23/19 diphenhydrAMINE [Benadryl] 01/23/19 oxyCODONE ER [OxyCONTIN] 15 mg PO BID 01/23/19 01/23/19 oxyCODONE [Roxicodone] 10 mg PO PRN PRN 01/23/19 01/23/19 Ketorolac [Toradol] 10 mg PO Q8HR PRN #30 tablet 01/30/19 Doxepin [SINEquan] 10 mg PO TID PRN #20 capsule 02/10/19 dexAMETHasone [Decadron] 4 mg PO BIDWM #10 tablet 02/10/19 Cefdinir 300 mg PO BID #20 capsule 04/11/19 dexAMETHasone [Decadron] 4 mg PO DAILY #5 tablet 04/11/19 Albuterol Sulf [Ventolin Hfa 1 - 2 puffs INH Q4HR PRN #1 inhaler 04/12/19 Inhaler] Phenazopyridine HCl [Pyridium] 200 mg PO TID PRN #6 tablet 05/06/19 Sulfamethoxazole/Trimethoprim 1 each PO BID 5 Days #10 tablet 05/06/19 [Sulfamethoxazole-Tmp Ds Tablet] dexAMETHasone [Decadron] 4 mg PO DAILY #5 tablet 05/06/19 - Allergies Allergies/Adverse Reactions: Allergies Allergy/AdvReac Type Severity Reaction Status Date / Time amitriptyline Allergy Hives Verified 04/11/19 10:32 cephalexin [From Keflex] Allergy Hives Verified 05/06/19 17:57 cyclobenzaprine Allergy Hives Verified 05/06/19 17:57 [From Flexeril] duloxetine [From Cymbalta] Allergy Hives Verified 05/06/19 17:57 enoxaparin [From Lovenox] Allergy Hives Verified 05/06/19 17:57 heparin Allergy Hives Verified 05/06/19 17:57 hydrocodone Allergy Itching Verified 05/06/19 17:57 ipratropium [From DuoNeb] Allergy Unknown Verified 05/06/19 17:57 methotrexate Allergy Anaphylaxis Verified 05/06/19 17:57 ondansetron [From Zofran] Allergy Hives Verified 05/06/19 17:57 Penicillins Allergy Rash Verified 05/06/19 17:57 prednisone Allergy Hives Verified 04/11/19 10:32 tizanidine [From Zanaflex] Allergy Hives Verified 04/11/19 10:32 trazodone Allergy Anxiety Verified 04/11/19 10:32 venlafaxine [From Effexor] Allergy Hives Verified 04/11/19 10:32 - Social History Does the pt smoke?: No Smoking Status: Never smoker Does the pt drink ETOH?: No Does the pt have substance abuse?: No - Immunizations Immunizations are current?: Yes - POLST Patient has POLST: No PD ED PE NORMAL - Vitals Vital signs reviewed: Yes - General General: Alert and oriented X 3, No acute distress - HEENT HEENT: PERRL, EOMI - Neck Neck: Supple, no meningeal sign, No bony TTP - Abdomen Abdomen: Soft, Non tender - Back Back: Other (mild r cvat) - Neuro Neuro: Alert and oriented X 3, Normal speech Results - Vitals Vitals: Vital Signs - 24 hr 05/06/19 17:57 Temperature 36.7 C Heart Rate 88 Respiratory 14 Rate Blood Pressure 121/80 O2 Saturation 98 Oxygen O2 Source Room air - Labs Labs: Laboratory Tests 05/06/19 05/06/19 18:06 18:06 Urine Color YELLOW Urine Clarity HAZY Urine pH 5.5 Ur Specific Belcher >=1.030 H >=1.030 H Urine Protein NEGATIVE Urine Glucose (UA) NEGATIVE Urine Ketones NEGATIVE Urine Occult Blood LARGE H Urine Nitrite NEGATIVE Urine Bilirubin NEGATIVE Urine Urobilinogen 0.2 (NORMAL) Ur Leukocyte Esterase MODERATE H Urine RBC 11-25 H Urine WBC 11-25 H Ur Squamous Epith Cells RARE Squamous Urine Bacteria None Seen Ur Microscopic Review INDICATED Urine Culture Comments INDICATED Urine HCG, Qual NEGATIVE PD MEDICAL DECISION MAKING - ED course ED course: She has some sort of chronic autoimmune disease and states that she needs to take low-dose dexamethasone whenever she takes antibiotics. Departure - Departure Disposition: 01 Home, Self Care Clinical Impression: Cystitis Condition: Good Record reviewed to determine appropriate education?: Yes Instructions: ED UTI Cystitis Female Prescriptions: dexAMETHasone [Decadron] 4 mg PO DAILY #5 tablet Phenazopyridine HCl [Pyridium] 200 mg PO TID PRN #6 tablet PRN Reason: dysuria Sulfamethoxazole/Trimethoprim [Sulfamethoxazole-Tmp Ds Tablet] 1 each PO BID 5 Days #10 tablet Comments: We will culture your urine, the results should be done in 48-72 hours. If an antibiotic change is necessary we will call you. Return if worse in the meantime, especially if you develop increasing flank pain, fevers, or cannot keep down the medication.
== END 2019-05-06 19:18 | disposition home or self-care (01) ==
LOC: ED 17:49
DX: N30.90 Cystitis, unspecified without hematuria (principal); I10 Essential (primary) hypertension; M32.9 Systemic lupus erythematosus, unspecified
CPT/HCPCS: 81001; 81025; 87086; 99283; 99284; A9270; 81003

== ENCOUNTER 2020-02-02 18:58 | Emergency (ER) | payer MEDICARE, OTHER ==
--- NOTE | 2020-02-02 19:51 | ED Physician Documentation ---
History of Present Illness - Stated complaint Stated Complaint: FEMALE /SORE THROAT - Chief complaint Chief Complaint: General - Additonal information Additional information: 39-year-old female presents to the emergency department for evaluation of multiple concerns 1. She reports a fever of 101 2 days ago, generalized fatigue malaise lost of taste and smell. She is worried that she has COVID-19 and would like COVID screening. 2. She reports that for 2 days she has had urinary urgency but is unable to pee very much. She also reports constipation for about 1 week. She has no abdominal pain or vomiting. This young lady did have fairly large spinal surgery January [address] [facility] at which previous lumbar hardware was removed and then replaced. Since the surgery she has had some numbness and mild weakness of the right leg which is not new. She is on multiple opiates for analgesia. She denies that she has loss of sensation between her legs or in the rectal area. 3. Constipation. She reports that she has the urge to defecate but is unable to. She is tried Ex-Lax without relief. Due to poor pain control her opioid doses were recently increased Patient does report a history of numerous autoimmune diseases including lupus, Sojourn's and rheumatoid arthritis. Review of Systems Constitutional: reports: Fever, Myalgias, Fatigue Eyes: reports: Reviewed and negative Ears: reports: Reviewed and negative Nose: reports: Other (Recent loss of taste and smell) Throat: reports: Reviewed and negative Cardiac: reports: Reviewed and negative Respiratory: reports: Reviewed and negative GI: reports: Constipation. denies: Abdominal Pain, Nausea, Vomiting : reports: Unable to Void (Urgency, does not feel like she fully empties her bladder) Skin: reports: Rash Musculoskeletal: reports: Back pain. denies: Joint pain, Extremity swelling Neurologic: reports: Focal weakness (mild righ tleg weakness not new since surgery). 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 Psych: None Musculoskeletal: Rheumatoid arthritis - Past Surgical History Past Surgical History: Yes General: Cholecystectomy, Appendectomy Ortho: Spine surgery /TELECOMMUNICATIONS ANALYST: Hysterectomy - Present Medications Home Medications: Ambulatory Orders Medication Instructions Recorded Confirmed Sumatriptan [Imitrex] 20 mg NS ONCE PRN #7 spray 10/30/18 Albuterol 01/23/19 Prochlorperazine Maleate 01/23/19 [Compazine] Promethazine [Phenergan] 01/23/19 diphenhydrAMINE [Benadryl] 01/23/19 oxyCODONE ER [OxyCONTIN] 15 mg PO BID 01/23/19 01/23/19 oxyCODONE [Roxicodone] 10 mg PO PRN PRN 01/23/19 01/23/19 Ketorolac [Toradol] 10 mg PO Q8HR PRN #30 tablet 01/30/19 Doxepin [SINEquan] 10 mg PO TID PRN #20 capsule 02/10/19 dexAMETHasone [Decadron] 4 mg PO BIDWM #10 tablet 02/10/19 Cefdinir 300 mg PO BID #20 capsule 04/11/19 dexAMETHasone [Decadron] 4 mg PO DAILY #5 tablet 04/11/19 Albuterol Sulf [Ventolin Hfa 1 - 2 puffs INH Q4HR PRN #1 inhaler 04/12/19 Inhaler] Phenazopyridine HCl [Pyridium] 200 mg PO TID PRN #6 tablet 05/06/19 Sulfamethoxazole/Trimethoprim 1 each PO BID 5 Days #10 tablet 05/06/19 [Sulfamethoxazole-Tmp Ds Tablet] dexAMETHasone [Decadron] 4 mg PO DAILY #5 tablet 05/06/19 Polyethylene Glycol 3350 [Miralax] 17 gm PO DAILY PRN #1 bottle 02/02/20 Sulfamethox/Trimeth 800/160 1 each PO BID #10 tablet 02/02/20 [Bactrim Ds 800/160] dexAMETHasone [Decadron] 4 mg PO 0800 #5 tablet 02/02/20 - Allergies Allergies/Adverse Reactions: Allergies Allergy/AdvReac Type Severity Reaction Status Date / Time amitriptyline Allergy Hives Verified 05/06/19 19:03 cephalexin [From Keflex] Allergy Hives Verified 02/02/20 19:26 cyclobenzaprine Allergy Hives Verified 02/02/20 19:26 [From Flexeril] duloxetine [From Cymbalta] Allergy Hives Verified 02/02/20 19:26 enoxaparin [From Lovenox] Allergy Hives Verified 02/02/20 19:26 heparin Allergy Hives Verified 02/02/20 19:26 hydrocodone Allergy Itching Verified 02/02/20 19:26 ipratropium [From DuoNeb] Allergy Unknown Verified 02/02/20 19:26 methotrexate Allergy Anaphylaxis Verified 02/02/20 19:26 ondansetron [From Zofran] Allergy Hives Verified 02/02/20 19:26 Penicillins Allergy Rash Verified 02/02/20 19:26 prednisone Allergy Hives Verified 02/02/20 19:26 tizanidine [From Zanaflex] Allergy Hives Verified 02/02/20 19:26 trazodone Allergy Anxiety Verified 02/02/20 19:26 venlafaxine [From Effexor] Allergy Hives Verified 02/02/20 19:26 - Social History Does the pt smoke?: No Smoking Status: Never smoker Does the pt drink ETOH?: No Does the pt have substance abuse?: No - Immunizations Immunizations are current?: Yes - POLST Patient has POLST: No PD ED PE EXPANDED - General General: Alert, No acute distress - Neck Neck: Supple w/out meningeal sx - Cardiac Cardiac: Radial strong equal, Femoral strong equal, Cap refill < 2 sec. No: Regular Rate - Respiratory Respiratory: Clear to ausultation emile. No: Distress, Labored - Abdomen Abdomen: Normal Bowel sounds. No: Tender to palpation (No enderness elicited with exam of the upper or lower abdomen. No rebound or guarding.) - Rectal Rectal: Normal Tone (Normal sensation in the perirectal area. Normal tone. Patient has a positive rectal wink and is able to bear down) - Back Back: Other (Well-healed lower lumbar vertical incision well-healed without erythema or drainage or tenderness elicited) - Extremities Extremities: Other (Motor strength 4-5 right lower leg with reduced dorsi and plantar flexion. Motor strength 5 of 5 left leg). No: Pedal edema bilateral - Neuro Neuro: Alert and Oriented X 3, CNII-XII intact, Normal finger nose, Normal speech. No: Normal gait (Using a walker) - GCS Eye Opening: Spontaneous Motor: Obeys Commands Verbal: Oriented Total: 15 Results - Vitals Vitals: Vital Signs - 24 hr 02/02/20 02/02/2002/01/20 19:13 20:16 20:50 Temperature 37.9 C H 38.0 C H 37.3 C Heart Rate 80 60 64 Respiratory 20 16 16 Rate Blood Pressure 119/80 120/73 116/81 H O2 Saturation 100 100 100 02/02/20 21:46 Temperature 37.1 C Heart Rate 65 Respiratory 18 Rate Blood Pressure 103/65 O2 Saturation 100 Oxygen O2 Source Room air - Labs Labs: Laboratory Tests 02/02/20 02/02/20 02/02/20 19:48 19:50 20:00 WBC 5.6 RBC 4.52 Hgb 12.9 Hct 38.8 MCV 85.8 MCH 28.5 MCHC 33.2 RDW 13.2 Plt Count 213 MPV 10.5 Neut # (Auto) 2.8 Lymph # (Auto) 1.7 [place] # (Auto) 0.6 Eos # (Auto) 0.5 Baso # (Auto) 0.0 Absolute Nucleated RBC 0.00 Nucleated RBC % 0.0 Sodium Potassium Chloride Carbon Dioxide Anion Gap BUN Creatinine Estimated GFR (MDRD) Glucose Lactic Acid Calcium Total Bilirubin AST ALT Alkaline Phosphatase Total Protein Albumin Globulin Albumin/Globulin Ratio Lipase Urine Color YELLOW Urine Clarity CLEAR Urine pH 6.0 Ur Specific Bee <=1.005 Urine Protein NEGATIVE Urine Glucose (UA) NEGATIVE Urine Ketones NEGATIVE Urine Occult Blood TRACE-INTA Urine Nitrite NEGATIVE Urine Bilirubin NEGATIVE Urine Urobilinogen 0.2 (NORMAL) Ur Leukocyte Esterase SMALL H Urine RBC 0-5 Urine WBC 4-5 Ur Squamous Epith Cells FEW Squamous Urine Bacteria Few Ur Microscopic Review INDICATED Urine Culture Comments INDICATED Influenza A (Rapid) Negative Influenza B (Rapid) Negative 02/02/20 02/02/20 20:00 20:00 WBC RBC Hgb Hct MCV MCH MCHC RDW Plt Count MPV Neut # (Auto) Lymph # (Auto) [place] # (Auto) Eos # (Auto) Baso # (Auto) Absolute Nucleated RBC Nucleated RBC % Sodium 136 Potassium 3.6 Chloride 103 Carbon Dioxide 27 Anion Gap 6.0 BUN 9 Creatinine 0.7 Estimated GFR (MDRD) 93 Glucose 88 Lactic Acid 1.1 Calcium 8.9 Total Bilirubin 1.0 AST 34 ALT 20 Alkaline Phosphatase 106 Total Protein 7.1 Albumin 4.1 Globulin 3.0 Albumin/Globulin Ratio 1.4 Lipase 29 Urine Color Urine Clarity Urine pH Ur Specific Bee Urine Protein Urine Glucose (UA) Urine Ketones Urine Occult Blood Urine Nitrite Urine Bilirubin Urine Urobilinogen Ur Leukocyte Esterase Urine RBC Urine WBC Ur Squamous Epith Cells Urine Bacteria Ur Microscopic Review Urine Culture Comments Influenza A (Rapid) Influenza B (Rapid) PD MEDICAL DECISION MAKING - ED course Complexity details: reviewed results, considered differential, d/w patient ED course: 39-year-old female here with multiple concerns. Of note she does have numerous autoimmune diseases and recently lost taste and smell. She reports a low-grade fever of 101 three days ago. Influenza testing is negative. Her COVID-19 screen is pending. Reassuringly she has unremarkable vital signs with no hypoxia. Cardiopulmonary auscultation is unremarkable. She also reported that she has urinary urgency but is unable to void much. She had a bladder scan here that showed 66 mL and she was able to void 700ml. Her urine is faintly suggestive of possible infection with small amount of LE and rare bacteria. She recently underwent surgery and did require a [place] for a short time. I am concerned that she may have a mild cystitis. Reassuringly she has normal sensation and rectal tone in the saddle area. Clinically this patient does not have an exam consistent with cauda equinaIn addition she has no fever or leukocytosis. Her lab work is essentially unremarkable. she is ambulating well with her walker. She does have mild weakness in the right leg but this is not new from since the surgery. After lengthy discussion with the patient I will prescribe her a 5-day course of Bactrim as well as Decadron is she reports that her autoimmune flares when she has antibiotics without steroids She did discuss with me that she has been constipated for much of the last week. This correlates with the recent increase in her opioids. I have encouraged her to drink more water and to begin taking MiraLAX. She did not have any abdominal tenderness on exam or vomiting therefore my suspicion for a bowel obstruction is low and therefore deferred imaging today I advised the patient to schedule follow-up with her primary and spinal surgeon as soon as possible. Emergent return precautions discussed for inability to void, saddle anesthesia development of fevers or concerns of cauda equina. She was advised to follow-up her COVID-19 screening results on the [facility] portal and to remain in quarantine unless she requires further medical evaluation until her results are known Departure - Departure Disposition: 01 Home, Self Care Clinical Impression: Encounter for screening laboratory testing for COVID-19 virus, Difficulty urinating Lupus (systemic lupus erythematosus) Qualifiers: Systemic lupus erythematosus type: drug-induced Systemic lupus erythematosus organ involvement: unspecified Qualified Code(s): M32.0 - Drug-induced systemic lupus erythematosus Condition: Stable Record reviewed to determine appropriate education?: Yes Prescriptions: Sulfamethox/Trimeth 800/160 [Bactrim Ds 800/160] 1 each PO BID #10 tablet dexAMETHasone [Decadron] 4 mg PO 0800 #5 tablet Polyethylene Glycol 3350 [Miralax] 17 gm PO DAILY PRN #1 bottle PRN Reason: Constipation Comments: Zenia I am worried that you may be developing a minor and early urinary infection. I have written a prescription for Bactrim as well as Decadron. Pl ease fill the prescription tomorrow and begin taking as directed. The constipation you have is most likely related to the opioids that you are taking for pain control. I recommend that you take the MiraLAX once to twice daily until you have 3 or 4 watery stools. If at any point you develop fevers have uncontrolled vomiting suddenly severe abdominal pain then please return to the emergency department Discharge Date/Time: 02/02/20 21:47
[2020-02-02 20:06] LABS: BASOPHILS % (AUTO) 0.5 %; EOSINOPHILS # (AUTO) 0.5 10^3/uL (0.0-0.7); EOSINOPHILS % (AUTO) 8.8 %; HGB - HEMOGLOBIN 12.9 g/dL (12.0-16.0); LYMPHOCYTES # (AUTO) 1.7 10^3/uL (1.5-3.5); LYMPHOCYTES % (AUTO) 29.9 %; MEAN CORPUSCULAR HEMOGLOBIN 28.5 pg (27.0-31.0); MEAN CORPUSCULAR HGB CONC 33.2 g/dL (32.0-36.0); MEAN CORPUSCULAR VOLUME 85.8 fL (81.0-99.0); MEAN PLATELET VOLUME 10.5 fL (7.9-10.8); MONOCYTES # (AUTO) 0.6 10^3/uL (0.0-1.0); MONOCYTES % (AUTO) 9.8 %; NEUTROPHILS # (AUTO) 2.8 10^3/uL (1.5-6.6); NEUTROPHILS % (AUTO) 50.8 %; PLT - PLATELET COUNT 213 10^3/uL (130-450); RED BLOOD COUNT 4.52 10^6/uL (4.20-5.40); RED CELL DISTRIBUTION WIDTH 13.2 % (12.0-15.0); WHITE BLOOD COUNT 5.6 x10^3/uL (4.8-10.8)
[2020-02-02 20:25] LABS: BILIRUBIN,URINE NEGATIVE (NEGATIVE); GLUCOSE, URINE (UA) NEGATIVE (NEGATIVE); KETONES,URINE (UA) NEGATIVE (NEGATIVE); LEUKOCYTE ESTERASE, URINE SMALL (NEGATIVE); NITRITE,URINE NEGATIVE (NEGATIVE); OCCULT BLOOD,URINE TRACE-INTA (NEGATIVE); PROTEIN,URINE NEGATIVE (NEGATIVE); UROBILINOGEN,URINE 0.2 (NORMAL) E.U./dL (NORMAL)
[2020-02-02 20:25] LABS: ALBUMIN 4.1 g/dL (3.2-5.5); ALBUMIN/GLOBULIN RATIO 1.4 (1.0-2.2); CALCIUM 8.9 mg/dL (8.5-10.3); CREATININE 0.7 mg/dL (0.4-1.0); TOTAL PROTEIN 7.1 g/dL (6.7-8.2)
[2020-02-02 20:27] LABS: CLARITY,URINE CLEAR (CLEAR)
[2020-02-02 20:39] LABS: BACTERIA,URINE Few /HPF (None Seen); RBC,URINE 0-5 /HPF (0-5); SQUAMOUS EPITHELIAL CELL,UR FEW Squamous (<= Few)
[2020-02-02] MEDS ORDERED: SULFAMETH/TRIMETH DS 800/160 MG TABLET PO STA (21:36)
[2020-02-02 21:47] VITALS: BP 103/65
== END 2020-02-02 21:47 | disposition home or self-care (01) ==
LOC: ED 18:58
DX: R50.9 Fever, unspecified (principal); Z20.828 Contact with and (suspected) exposure to other viral communicable diseases; R39.198 Other difficulties with micturition; R39.15 Urgency of urination; K59.00 Constipation, unspecified; M32.0 Drug-induced systemic lupus erythematosus; M06.9 Rheumatoid arthritis, unspecified; I10 Essential (primary) hypertension
CPT/HCPCS: 36415; 51701; 51798; 80053; 81001; 83605; 83690; 85025; 87086; 87275; 87276; 99283; 99284; A9270; U0004; 81003

== ENCOUNTER 2020-05-05 15:37 | Emergency (ER) | payer MEDICARE, OTHER ==
--- NOTE | 2020-05-05 16:39 | ED Physician Documentation ---
PD HPI URI - Stated complaint Stated Complaint: COUGH,NECK PX,SOA,HEADACHE - Chief complaint Chief Complaint: Heent - History obtained from History obtained from: Patient - History of Present Illness Timing - onset: How many weeks ago (2) Timing duration: Weeks (2) Timing details: Gradual onset, Still present, Waxing and waning Associated symptoms: Ear pain (the past several days), Nasal congestion, Dry cough, Dyspnea, Other (headache and general body aches.). No: Fever Contributing factors: COPD / asthma. No: Sick contact, Immunocompromised Similar symptoms before: Has not had sx before Recently seen: Clinic (was on Decadron dosing for a week with slight improvement. Now with ear pain, freddy left, and persistent cough, general aches and headache. NO stiff neck. NO nausea nor vomiting.) Review of Systems Constitutional: reports: Chills, Myalgias. denies: Fever Nose: denies: Rhinorrhea / runny nose, Congestion, Sinus pressure / pain Throat: reports: Sore throat Cardiac: denies: Chest pain / pressure Respiratory: reports: Dyspnea, Cough, Wheezing GI: denies: Nausea, Vomiting, Diarrhea Skin: denies: Rash Neurologic: reports: Generalized weakness, Headache. 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: Hysterectomy - Present Medications Home Medications: Ambulatory Orders Medication Instructions Recorded Confirmed Sumatriptan [Imitrex] 20 mg NS ONCE PRN #7 spray 10/30/18 Albuterol 01/23/19 Prochlorperazine Maleate 01/23/19 [Compazine] Promethazine [Phenergan] 01/23/19 diphenhydrAMINE [Benadryl] 01/23/19 oxyCODONE ER [OxyCONTIN] 15 mg PO BID 01/23/19 01/23/19 oxyCODONE [Roxicodone] 10 mg PO PRN PRN 01/23/19 01/23/19 Ketorolac [Toradol] 10 mg PO Q8HR PRN #30 tablet 01/30/19 Doxepin [SINEquan] 10 mg PO TID PRN #20 capsule 02/10/19 dexAMETHasone [Decadron] 4 mg PO BIDWM #10 tablet 02/10/19 Cefdinir 300 mg PO BID #20 capsule 04/11/19 dexAMETHasone [Decadron] 4 mg PO DAILY #5 tablet 04/11/19 Albuterol Sulf [Ventolin Hfa 1 - 2 puffs INH Q4HR PRN #1 inhaler 04/12/19 Inhaler] Phenazopyridine HCl [Pyridium] 200 mg PO TID PRN #6 tablet 05/06/19 Sulfamethoxazole/Trimethoprim 1 each PO BID 5 Days #10 tablet 05/06/19 [Sulfamethoxazole-Tmp Ds Tablet] dexAMETHasone [Decadron] 4 mg PO DAILY #5 tablet 05/06/19 Sulfamethox/Trimeth 800/160 1 each PO BID #10 tablet 02/02/20 [Bactrim Ds 800/160] dexAMETHasone [Decadron] 4 mg PO 0800 #5 tablet 02/02/20 polyethylene glycoL 3350 [Miralax] 17 gm PO DAILY PRN #1 bottle 02/02/20 Benzonatate [Tessalon] 100 mg PO TID PRN #20 capsule 05/05/20 Doxycycline Monohydrate 150 mg PO BID #14 capsule 05/05/20 dexAMETHasone [Decadron] 4 mg PO DAILY #5 tablet 05/05/20 - Allergies Allergies/Adverse Reactions: Allergies Allergy/AdvReac Type Severity Reaction Status Date / Time amitriptyline Allergy Hives Verified 04/25/20 16:02 cephalexin [From Keflex] Allergy Hives Verified 05/05/20 15:55 cyclobenzaprine Allergy Hives Verified 05/05/20 15:55 [From Flexeril] duloxetine [From Cymbalta] Allergy Hives Verified 05/05/20 15:55 enoxaparin [From Lovenox] Allergy Hives Verified 05/05/20 15:55 heparin Allergy Hives Verified 05/05/20 15:55 hydrocodone Allergy Itching Verified 05/05/20 15:55 ipratropium [From DuoNeb] Allergy Unknown Verified 05/05/20 15:55 leflunomide Allergy Headache Verified 05/05/20 15:55 methotrexate Allergy Anaphylaxis Verified 05/05/20 15:55 ondansetron [From Zofran] Allergy Hives Verified 05/05/20 15:55 Penicillins Allergy Rash Verified 05/05/20 15:55 prednisone Allergy Hives Verified 05/05/20 15:55 tizanidine [From Zanaflex] Allergy Hives Verified 05/05/20 15:55 trazodone Allergy Anxiety Verified 05/05/20 15:55 venlafaxine [From Effexor] Allergy Hives Verified 05/05/20 15:55 - Social History Does the pt smoke?: No Smoking Status: Never smoker Does the pt drink ETOH?: No Does the pt have substance abuse?: No - Immunizations Immunizations are current?: Yes - POLST Patient has POLST: No PD ED PE NORMAL - Vitals Vital signs reviewed: Yes - General General: Alert and oriented X 3, No acute distress (seems uncomfortable with headache but not significantly so. Does not appear meningitic. SUpple neck and no adenopathy. ), Well developed/nourished - HEENT HEENT: Pharynx benign. No: Ears normal (right is okay with some fluid behind it. Left with fluid but also redness and inflammation of the TM. ) - Neck Neck: Supple, no meningeal sign, No adenopathy - Cardiac Cardiac: RRR, No murmur - Respiratory Respiratory: No respiratory distress, Other (some diffuse exp wheezing, more notable when coughing. ) - Abdomen Abdomen: Soft, Non tender - Derm Derm: Normal color, Warm and dry, No rash - Neuro Neuro: Alert and oriented X 3, No motor deficit, Normal speech Results - Vitals Vitals: Vital Signs - 24 hr 05/05/20 05/05/20 05/05/20 15:45 17:11 18:09 Temperature 36.7 C 37.4 C Heart Rate 92 78 77 Respiratory 18 16 21 Rate Blood Pressure 125/85 H 121/91 H O2 Saturation 95 100 05/05/20 18:36 Temperature Heart Rate 81 Respiratory 16 Rate Blood Pressure 115/82 H O2 Saturation 100 Oxygen O2 Source Room air - Rads (name of study) chest xray Radiology: Prelim report reviewed (no infiltrates), See rad report PD MEDICAL DECISION MAKING - ED course Complexity details: considered differential (patient specifies not wanting extra narcotics. Would like to try Toradol. ALready has pain meds on pain contract. ), d/w patient Departure - Departure Disposition: 01 Home, Self Care Clinical Impression: Upper respiratory infection Qualifiers: URI type: unspecified URI Qualified Code(s): J06.9 - Acute upper respiratory infection, unspecified Otitis media Qualifiers: Otitis media type: suppurative Chronicity: acute Laterality: left Recurrence: non-recurrent Spontaneous tympanic membrane rupture: without spontaneous rupture Qualified Code(s): H66.002 - Acute suppurative otitis media without spontaneous rupture of ear drum, left ear Exacerbation of asthma Qualifiers: Asthma severity: mild Asthma persistence: intermittent Qualified Code(s): J45.21 - Mild intermittent asthma with (acute) exacerbation Rheumatoid arthritis Qualifiers: Rheumatoid arthritis location: unspecified site Rheumatoid factor presence: un specified presence Qualified Code(s): M06.9 - Rheumatoid arthritis, unspecified Condition: Stable Record reviewed to determine appropriate education?: Yes Instructions: Asthma Dc, ED Otitis Media Acute Adult Follow-Up: ANTONIETTA SHIRLEY ARNP [Primary Care Provider] - Prescriptions: dexAMETHasone [Decadron] 4 mg PO DAILY #5 tablet Doxycycline Monohydrate 150 mg PO BID #14 capsule Benzonatate [Tessalon] 100 mg PO TID PRN #20 capsule PRN Reason: Cough Comments: Chest x-ray is clear without any signs of pneumonia. The Covid test should result in the next 1 or 2 days. Meanwhile continue with your albuterol inhaler or nebulizer 4 times a day for the next several days to week. Decadron steroid daily for 5 more days for inflammation. Continue usual pain medications. Doxycycline antibiotic twice daily for a week for potential bacterial components for the ear and bronchioles. Add benzonatate if needed for cough. Recheck if not improved well over the next several days and return if worsening. Discharge Date/Time: 05/05/20 18:53
[2020-05-05] MEDS ORDERED: KETOROLAC 30 MG/ML VIAL IM STA (17:03)
[2020-05-05] MEDS ORDERED: DEXAMETHASONE 10 MG/ML VIAL PO STA (17:03)
[2020-05-05] MEDS ORDERED: ALBUTEROL NEB 2.5 MG/3 ML INH STA (17:05)
[2020-05-05] MEDS ORDERED: DOXYCYCLINE 100 MG TABLET PO STA (17:47)
[2020-05-05] MEDS ORDERED: ALBUTEROL 1 PUFF INH STA (17:58)
[2020-05-05] MEDS: CHERRY SYRUP 10 ML UDC PO ONE ×2 (18:04→18:10)
--- NOTE | 2020-05-05 18:27 | XRAY Report ---
PROCEDURE: Chest 1 View X-Ray INDICATIONS: persistent cough and dyspnea TECHNIQUE: One view of the chest was acquired. COMPARISON: 04/25/2020 FINDINGS: Surgical changes and devices: None. Lungs and pleura: No pleural effusions or pneumothorax. Lungs are clear. Mediastinum: Mediastinal contours appear normal. Heart size is normal. Bones and chest wall: No suspicious bony lesions. Overlying soft tissues appear unremarkable. IMPRESSION: No acute cardiopulmonary process demonstrated radiographically. Reviewed by: Albert Finley MD on 05/05/2020 6:25 PM PST Approved by: Albert Finley MD on 05/05/2020 6:25 PM [facility] Station ID: [id number]
[2020-05-05 18:37] VITALS: BP 115/82
== END 2020-05-05 18:53 | disposition home or self-care (01) ==
LOC: ED 15:37
DX: J06.9 Acute upper respiratory infection, unspecified (principal); H66.002 Acute suppurative otitis media without spontaneous rupture of ear drum, left ear; J45.21 Mild intermittent asthma with (acute) exacerbation; M06.9 Rheumatoid arthritis, unspecified; I10 Essential (primary) hypertension; Z20.822 Contact with and (suspected) exposure to COVID-19
CPT/HCPCS: 71045; 94640; 96372; 99284; A9270; U0004